=== PATIENT | female | born 1970 | race Caucasian/White ===

== ENCOUNTER → 2016-08-29 | Outpatient (CLI) | payer OTHER ==
--- NOTE | 2016-09-02 13:04 | MM ---
Reason for exam: screening (asymptomatic). Last mammogram was performed 1 year and 2 months ago. History: Taking hormonal contraceptives for 20 years beginning at age 17. Physical Findings: A clinical breast exam by your physician is recommended on an annual basis and results should be correlated with mammographic findings. MG Screening Mammo w CAD Bilateral CC and MLO view(s) were taken. Prior study comparison: June 28, 2015, bilateral MG screening mammo w CAD. April 21, 2013, bilateral digital screening mammo w/CAD. There are scattered fibroglandular densities. No significant changes when compared with prior studies. ASSESSMENT: Benign, BI-RAD 2 RECOMMENDATION: Routine screening mammogram of both breasts in 1 year.
== END | disposition home or self-care (01) ==
LOC: RADMAMWWP 14:35
PROVIDERS: ATTEND Obstetrics & Gynecology
DX: Z12.31 Encounter for screening mammogram for malignant neoplasm of breast (principal)

== ENCOUNTER → 2017-07-18 | Outpatient (CLI) | payer OTHER ==
[2017-07-18 07:44] LABS: Anisocytosis Slight; HGB 9.2 gm/dL (11.4-16.0); Hypochromasia Marked; MCH 21.5 pg (25.0-35.0); MCHC 27.9 g/dL (31.0-37.0); Mean Platelet Volume 6.6; Microcytosis Slight; Platelet Count 354 k/uL (150-450); RBC 4.28 m/uL (3.80-5.40); RDW 16.7 % (11.5-15.5); WBC 5.9 k/uL (3.8-10.6)
[2017-07-18 07:56] LABS: ALT 19 U/L (9-52); AST 24 U/L (14-36); Albumin 3.9 g/dL (3.5-5.0); Alkaline Phosphatase 52 U/L (38-126); Anion Gap 8 mmol/L; Blood Urea Nitrogen 10 mg/dL (7-17); Carbon Dioxide 25 mmol/L (22-30); Chloride 107 mmol/L (98-107); Cholesterol 195 mg/dL (<200); Glucose 84 mg/dL (74-99); HDL Cholesterol 91 mg/dL (40-60); LDL Cholesterol,Calculated 83 mg/dL (0-99); Sodium 140 mmol/L (137-145); Total Bilirubin 0.5 mg/dL (0.2-1.3); Total Protein 6.9 g/dL (6.3-8.2); Triglycerides 105 mg/dL (<150)
[2017-07-18 08:00] LABS: Potassium 4.7 mmol/L (3.5-5.1)
[2017-07-18 08:12] LABS: T4, Free (Free Thyroxine) 1.46 ng/dL (0.78-2.19)
[2017-07-18 08:56] LABS: Eosinophils # (M) 0.35 k/uL (0-0.7); Lymphocytes # (M) 2.18 k/uL (1.0-4.8); Neutrophils # (M) 3.07 k/uL (1.3-7.7); Neutrophils % (M) 52 %; Nucleated Red Blood Cells 0 /100 WBC (0-0); Total Cells Counted 100
== END | disposition home or self-care (01) ==
LOC: LABWHC1 07:07
PROVIDERS: ATTEND Family Medicine
DX: Z00.00 Encounter for general adult medical examination without abnormal findings (principal); N93.8 Other specified abnormal uterine and vaginal bleeding; E03.9 Hypothyroidism, unspecified; D64.9 Anemia, unspecified
CPT/HCPCS: 36415; 80053; 80061; 84439; 84443; 85027

== ENCOUNTER → 2017-09-30 | Outpatient (CLI) | payer OTHER ==
--- NOTE | 2017-09-30 15:15 | US ---
EXAMINATION TYPE: US thyroid st tissue head/neck DATE OF EXAM: 09/30/2017 COMPARISON: Prior thyroid ultrasound February 21, 2012 CLINICAL HISTORY: E04.9 NONTOXIC GOITER. GLAND SIZE: Right Lobe: 6.3 x 2.1 x 1.9 cm Overall Parenchyma: heterogenous Left Lobe: 5.8 x 2.2 x 1.6 cm Overall Parenchyma: heterogeneous Isthmus Thickness: 0.3 cm NODULES RIGHT: # of nodules measured on right: 0 LEFT: # of nodules measured on left: 0 ISTHMUS: # of nodules measured in the isthmus: 0 Bilateral neck scanned, no evidence of lymphadenopathy. Persistent heterogeneous enlarged thyroid gland even more prominent than measurements given on prior ultrasound. No new discrete nodule is seen. IMPRESSION: Heterogeneous enlarged thyroid more prominent than prior study based on measurements, no suspicious new greater than 1 cm solid or cystic nodule is noted.
--- NOTE | 2017-10-06 08:04 | MM ---
Reason for exam: screening (asymptomatic). Last mammogram was performed 1 year and 1 month ago. History: Taking hormonal contraceptives for 20 years beginning at age 17. Physical Findings: A clinical breast exam by your physician is recommended on an annual basis and results should be correlated with mammographic findings. MG Screening Mammo w CAD Bilateral CC and MLO view(s) were taken. Prior study comparison: August 29, 2016, bilateral MG screening mammo w CAD. June 28, 2015, bilateral MG screening mammo w CAD. The breast tissue is heterogeneously dense. This may lower the sensitivity of mammography. There is no discrete abnormality. ASSESSMENT: Negative, BI-RAD 1 RECOMMENDATION: Routine screening mammogram of both breasts in 1 year.
== END | disposition home or self-care (01) ==
LOC: RADMAMWWP 14:44
PROVIDERS: ATTEND Obstetrics & Gynecology
DX: Z12.31 Encounter for screening mammogram for malignant neoplasm of breast (principal); E04.9 Nontoxic goiter, unspecified
CPT/HCPCS: 76536; 77067

== ENCOUNTER → 2018-07-25 | Outpatient (CLI) | payer OTHER ==
[2018-07-25 10:15] LABS: HGB 13.1 gm/dL (11.4-16.0); MCHC 31.3 g/dL (31.0-37.0); MCV 92.8 fL (80.0-100.0); Mean Platelet Volume 6.6; Platelet Count 283 k/uL (150-450); RBC 4.52 m/uL (3.80-5.40); RDW 15.3 % (11.5-15.5); WBC 5.5 k/uL (3.8-10.6)
[2018-07-25 10:48] LABS: Eosinophils # (M) 0.22 k/uL (0-0.7); Lymphocytes # (M) 1.38 k/uL (1.0-4.8); Monocytes # (M) 0.33 k/uL (0-1.0); Neutrophils # (M) 3.58 k/uL (1.3-7.7); Neutrophils % (M) 65 %; Nucleated Red Blood Cells 0 /100 WBC (0-0); Total Cells Counted 100
[2018-07-25 17:11] LABS: Iron Saturation 16.88 (12.00-45.00)
[2018-07-25 17:14] LABS: Albumin 4.1 g/dL (3.80-4.90); Albumin/Globulin Ratio 1.78 (1.60-3.17); Anion Gap 6.5 mmol/L (4.00-12.00); Calcium 8.9 mg/dL (8.7-10.3); Carbon Dioxide 26.5 mmol/L (21.6-31.8); Globulin 2.3 g/dL (1.6-3.3); LDL Cholesterol,Calculated 102.2 mg/dL (0.0-131.0); Potassium 4.7 mmol/L (3.5-5.5); Total Bilirubin 0.6 mg/dL (0.2-1.2); Total Protein 6.4 g/dL (6.2-8.2); VLDL Calculation 20.8 mg/dL (5.00-40.00)
[2018-07-25 17:22] LABS: T4, Free (Free Thyroxine) 1.2 ng/dL (0.80-1.80)
== END ==
LOC: LABWHC1 09:48
PROVIDERS: ATTEND Family Medicine
DX: E03.9 Hypothyroidism, unspecified (principal); D64.9 Anemia, unspecified; R03.0 Elevated blood-pressure reading, without diagnosis of hypertension
CPT/HCPCS: 36415; 80053; 80061; 82728; 83540; 83550; 84439; 84443; 85025

== ENCOUNTER → 2019-01-06 | Outpatient (CLI) | payer OTHER ==
--- NOTE | 2019-01-07 13:19 | MM ---
Reason for exam: screening (asymptomatic). Last mammogram was performed 1 year and 3 months ago. History: Taking hormonal contraceptives for 20 years beginning at age 17. Physical Findings: A clinical breast exam by your physician is recommended on an annual basis and results should be correlated with mammographic findings. MG Screening Mammo w CAD Bilateral CC and MLO view(s) were taken. Prior study comparison: September 30, 2017, bilateral MG screening mammo w CAD. August 29, 2016, bilateral MG screening mammo w CAD. The breast tissue is heterogeneously dense. This may lower the sensitivity of mammography. There are benign appearing round calcifications in the right breast. There is no discrete abnormality. ASSESSMENT: Negative, BI-RAD 1 RECOMMENDATION: Routine screening mammogram of both breasts in 1 year.
== END | disposition home or self-care (01) ==
LOC: RADMAMWWP 11:35
PROVIDERS: ATTEND Obstetrics & Gynecology
DX: Z12.31 Encounter for screening mammogram for malignant neoplasm of breast (principal)
CPT/HCPCS: 77067

== ENCOUNTER → 2020-03-02 | Outpatient (CLI) | payer BC ==
--- NOTE | 2020-03-02 13:31 | ECHOF ---
Referral Reason:Z82.49 Family history of ischemic heart disease MEASUREMENTS -------- HEIGHT: 165.1 cm WEIGHT: 65.8 kg BP: IVSd: 1.1 cm (0.6 - 1.1) LVIDd: 3.4 cm (3.9 - 5.3) LVPWd: 1.1 cm (0.6 - 1.1) IVSs: 1.5 cm LVIDs: 1.7 cm LVPWs: 1.7 cm LAESV Index (A-L): 23.08 ml/m Ao Diam: 2.5 cm (2.0 - 3.7) AV Cusp: 1.6 cm (1.5 - 2.6) LA Diam: 1.5 cm (2.7 - 3.8) MV EXCURSION: 16.399 mm (> 18.000) MV EF SLOPE: 134 mm/s (70 - 150) EPSS: 0.4 cm MV E Donovan: 0.90 m/s MV DecT: 238 ms MV A Donovan: 0.77 m/s MV E/A Ratio: 1.17 RAP: 5.00 mmHg RVSP: 19.39 mmHg FINDINGS -------- This was a technically good study. The left ventricular size is normal. Left ventricular wall thickness is normal. Overall left vent ricular systolic function is normal with, an EF between 55 - 60 %. The diastolic filling pattern is normal for the age of the patient 11.63. The right ventricle is normal in size. The left atrial size is normal. Normal LA size by volume 22+/-6 ml/m2. The right atrial size is normal. The aortic valve is trileaflet and appears structurally normal. The mitral valve is normal. The mitral valve leaflets are mildly thickened. Mild mitral regurgita tion is present. Mild tricuspid regurgitation present. Right ventricular systolic pressure is normal at < 35 mmHg. There is no evidence of pulmonary hypertension. There is no pulmonic regurgitation present. The aortic root size is normal. Normal inferior vena cava with normal inspiratory collapse consistent with estimated right atrial pre ssure of 5 mmHg. There is no pericardial effusion. CONCLUSIONS -------- 1. The left ventricular size is normal. 2. Left ventricular wall thickness is normal. 3. Overall left ventricular systolic function is normal with, an EF between 55 - 60 %. 4. The diastolic filling pattern is normal for the age of the patient 11.63 5. The aortic valve is trileaflet and appears structurally normal. 6. The mitral valve leaflets are mildly thickened. 7. Mild mitral regurgitation is present. 8. Right ventricular systolic pressure is normal at < 35 mmHg. 9. There is no pericardial effusion. TIP LENGTH CHECKER: Nohemi Hutchison RDCS
--- NOTE | 2020-03-02 14:59 | EST ---
EXERCISE STRESS AGE: 49 SEX: F HT: 5'5" WT: 145 PROTOCOL: Jack Stress Test STAGE: 3 DURATION OF EXERCISE: 9:00 HEART RATE REST: 103 BLOOD PRESSURE REST: 143/78 MAXIMUM HEART RATE ACHIEVED: 158 MAXIMUM BLOOD PRESSURE: 168/96 85% MPHR: 145 100% MPHR: 171 METS: 10.5 INDICATIONS: Family history of ischemic heart disease. CLINICAL INFORMATION: Baseline EKG shows sinus rhythm, normal axis, normal intervals. Patient exercised on Jack protocol for a total of 9 minutes achieving 10 METS, 92% of predicted maximal heart rate without chest pain or diagnostic ST-segment depression. CONCLUSION: 1. Good exercise tolerance. 2. Negative stress test by EKG criteria. MMODL / IJN: [id number] /
== END | disposition home or self-care (01) ==
LOC: RADNMMAIN 10:36
PROVIDERS: ATTEND Family Medicine
DX: Z13.6 Encounter for screening for cardiovascular disorders (principal); I34.0 Nonrheumatic mitral (valve) insufficiency; Z82.49 Family history of ischemic heart disease and other diseases of the circulatory system
CPT/HCPCS: 93017; 93306

== ENCOUNTER → 2020-03-16 | Outpatient (CLI) | payer BC ==
--- NOTE | 2020-03-20 09:20 | MM ---
Reason for exam: screening (asymptomatic). Last mammogram was performed 1 year and 2 months ago. History: Taking hormonal contraceptives for 20 years beginning at age 17. Physical Findings: A clinical breast exam by your physician is recommended on an annual basis and results should be correlated with mammographic findings. MG 3D Screening Mammo W/Cad Bilateral CC and MLO view(s) were taken. Prior study comparison: January 06, 2019, bilateral MG screening mammo w CAD. September 30, 2017, bilateral MG screening mammo w CAD. The breast tissue is heterogeneously dense. This may lower the sensitivity of mammography. Finding: There are calcifications in the anterior position of the right breast. No significant changes in finding since January 06, 2019 and September 30, 2017. ASSESSMENT: Benign, BI-RAD 2 RECOMMENDATION: Routine screening mammogram of both breasts in 1 year.
== END | disposition home or self-care (01) ==
LOC: RADMAMWWP 14:28
PROVIDERS: ATTEND Obstetrics & Gynecology
DX: Z12.31 Encounter for screening mammogram for malignant neoplasm of breast (principal)
CPT/HCPCS: 77063; 77067

== ENCOUNTER 2021-01-15 10:38 | Observation (INO) | payer BC ==
[2021-01-15] MEDS ORDERED: ONDANSETRON 4 MG/2 ML VIAL IVP STA (11:30)
--- NOTE | 2021-01-15 11:31 | ED ---
General Adult HPI - General Chief complaint: Altered Mental Status Stated complaint: Memory issues Time Seen by Provider: 01/15/21 10:49 Source: patient, family Mode of arrival: wheelchair Limitations: no limitations - History of Present Illness Initial comments: Dictation was produced using [employer] dictation software. please excuse any grammatical, word or spelling errors. Chief Complaint: 50-year-old female presents with acute amnesia History of Present Illness: Is a 50-year-old female she has no significant past medical history. Patient was found to be showing signs of altered mental status today. Approximately 30 minutes prior to arrival patient was noted to have acute amnesia. describes that he asked her if she wanted to go for a bike ride. She was then confused and found to be amnestic to recent events. Wh en being driven to the hospital she was asking repetitively washes being driven to the hospital. She is unable to remember recent events. She does not A for dinner last night. Patient has any medical process at the moment. When asked about important dates she states that she does not remember. She does know that she is at the hospital. Denies any headache. No neck stiffness. No numbness and waning weakness or paresthesias to the extremities. The ROS documented in this emergency department record has been reviewed and confirmed by me. Those systems with pertinent positive or negative responses have been documented in the HPI. All other systems are other negative and/or noncontributory. PHYSICAL EXAM: General Impression: Alert and oriented x3/4, not in acute distress HEENT: Normocephalic atraumatic, extra-ocular movements intact, pupils equal and reactive to light bilaterally, mucous membranes moist, neck moves about freely Cardiovascular: Heart regular rate and rhythm Chest: Able to complete full sentences, no retractions, no tachypnea Abdomen: abdomen soft, non-tender, non-distended, no organomegaly Musculoskeletal: Pulses present and equal in all extremities, no peripheral edema Motor: no focal deficits noted Neurological: CN II-XII grossly intact, no focal motor or sensory deficits noted, NIH of 0 Skin: Intact with no visualized rashes Psych: Normal affect and mood ED course: 50-year-old male presents emergency department for altered mental status. She is described by to be experiencing signs of acute amnesia to recent events. Vital signs upon arrival are within acceptable limits. Patient's well-appearing at bedside. Laboratory evaluation obtained. Abnormalities noted. Urinalysis does show a lot of blood unclear significance. Computed tomography scan of brain is unremarkable. Patient reevaluated at bedside at 1:20 PM she does appear to be in stable medical condition over she still amnestic. This point given patient's persistent neurologic symptoms we will have her admitted with neurology consultation. Case discussed with Dr. Stokes who is willing to accept patients care. She requested patient be ordered for aspirin. Patient given 1 dose here in the ER. Patient and family are agreeable with plan. EKG interpretation: Ventricular rate 70, normal sinus rhythm,. 122, QRS 86, QTC 462. No LA prolongation, no QTC prolongation, no ST or T-wave changes noted. Overall, this EKG is unremarkable - Related Data Home Medications Medication Instructions Recorded Confirmed Ibuprofen [Motrin] 600 mg PO Q6HR PRN 01/15/21 01/15/21 Levothyroxine Sodium [Synthroid] 125 mcg PO DAILY 01/15/21 01/15/21 Norgestimate-Ethinyl Estradiol 1 tab PO DAILY 01/15/21 01/15/21 [Sprintec 28 Day Tablet] Tranexamic Acid [Lysteda] See Taper PO DIRECTED 01/15/21 01/15/21 Allergies Allergy/AdvReac Type Severity Reaction Status Date / Time No Known Allergies Allergy Verified 01/15/21 12:39 Review of Systems ROS Statement: Those systems with pertinent positive or pertinent negative responses have been documented in the HPI. ROS Other: All systems not noted in ROS Statement are negative. Past Medical History Past Medical History: Thyroid Disorder History of Any Multi-Drug Resistant Organisms: None Reported Past Surgical History: No Surgical Hx Reported Past Psychological History: No Psychological Hx Reported Smoking Status: Never smoker Past Alcohol Use History: None Reported Past Drug Use History: None Reported General Exam Limitations: no limitations Course Vital Signs 01/15/21 01/15/21 01/15/21 10:44 11:30 12:00 Temperature 98 F Pulse Rate 83 75 80 Respiratory 18 18 17 Rate Blood Pressure 157/105 148/88 157/98 O2 Sat by Pulse 99 Oximetry Medical Decision Making - Lab Data Result diagrams: 01/15/21 11:31 01/15/21 11:31 Lab Results 01/15/21 01/15/21 01/15/21 Range/Units 11:31 11:31 11:31 WBC 6.4 (3.8-10.6) k/uL RBC 4.70 (3.80-5.40) m/uL Hgb 14.9 (11.4-16.0) gm/dL Hct 45.1 (34.0-46.0) % MCV 96.1 (80.0-100.0) fL MCH 31.7 (25.0-35.0) pg MCHC 33.0 (31.0-37.0) g/dL RDW 13.3 (11.5-15.5) % Plt Count 323 (150-450) k/uL MPV 6.9 Neutrophils % 74 % Lymphocytes % 17 % Monocytes % 4 % Eosinophils % 1 % Basophils % 0 % Neutrophils # 4.7 (1.3-7.7) k/uL Lymphocytes # 1.1 (1.0-4.8) k/uL Monocytes # 0.3 (0-1.0) k/uL Eosinophils # 0.1 (0-0.7) k/uL Basophils # 0.0 (0-0.2) k/uL PT 9.7 (9.0-12.0) sec INR 0.9 (<1.2) APTT 22.1 (22.0-30.0) sec Sodium 137 (137-145) mmol/L Potassium 4.2 (3.5-5.1) mmol/L Chloride 107 (98-107) mmol/L Carbon Dioxide 22 (22-30) mmol/L Anion Gap 8 mmol/L BUN 7 (7-17) mg/dL Creatinine 0.71 (0.52-1.04) mg/dL Est GFR (CKD-EPI)AfAm >90 (>60 ml/min/1.73 sqM) Est GFR (CKD-EPI)NonAf >90 (>60 ml/min/1.73 sqM) Glucose 109 H (74-99) mg/dL POC Glucose (mg/dL) (75-99) mg/dL POC Glu Pharmaceutical Salesperson ID Calcium 9.0 (8.4-10.2) mg/dL Total Bilirubin 0.5 (0.2-1.3) mg/dL AST 34 (14-36) U/L ALT 16 (4-34) U/L Alkaline Phosphatase 62 (38-126) U/L Total Protein 7.1 (6.3-8.2) g/dL Albumin 4.3 (3.5-5.0) g/dL Urine Color Urine Appearance (Clear) Urine pH (5.0-8.0) Ur Specific Goessel (1.001-1.035) Urine Protein (Negative) Urine Glucose (UA) (Negative) Urine Ketones (Negative) Urine Blood (Negative) Urine Nitrite (Negative) Urine Bilirubin (Negative) Urine Urobilinogen (<2.0) mg/dL Ur Leukocyte Esterase (Negative) Urine RBC (0-5) /hpf Urine WBC (0-5) /hpf Ur Squamous Epith Cells (0-4) /hpf Urine Mucus (None) /hpf 01/15/21 01/15/21 Range/Units 11:36 11:41 WBC (3.8-10.6) k/uL RBC (3.80-5.40) m/uL Hgb (11.4-16.0) gm/dL Hct (34.0-46.0) % MCV (80.0-100.0) fL MCH (25.0-35.0) pg MCHC (31.0-37.0) g/dL RDW (11.5-15.5) % Plt Count (150-450) k/uL MPV Neutrophils % % Lymphocytes % % Monocytes % % Eosinophils % % Basophils % % Neutrophils # (1.3-7.7) k/uL Lymphocytes # (1.0-4.8) k/uL Monocytes # (0-1.0) k/uL Eosinophils # (0-0.7) k/uL Basophils # (0-0.2) k/uL PT (9.0-12.0) sec INR (<1.2) APTT (22.0-30.0) sec Sodium (137-145) mmol/L Potassium (3.5-5.1) mmol/L Chloride (98-107) mmol/L Carbon Dioxide (22-30) mmol/L Anion Gap mmol/L BUN (7-17) mg/dL Creatinine (0.52-1.04) mg/dL Est GFR (CKD-EPI)AfAm (>60 ml/min/1.73 sqM) Est GFR (CKD-EPI)NonAf (>60 ml/min/1.73 sqM) Glucose (74-99) mg/dL POC Glucose (mg/dL) 105 H (75-99) mg/dL POC Glu Pharmaceutical Salesperson ID Farhana Kerr Calcium (8.4-10.2) mg/dL Total Bilirubin (0.2-1.3) mg/dL AST (14-36) U/L ALT (4-34) U/L Alkaline Phosphatase (38-126) U/L Total Protein (6.3-8.2) g/dL Albumin (3.5-5.0) g/dL Urine Color Light Red Urine Appearance Clear (Clear) Urine pH 6.0 (5.0-8.0) Ur Specific Goessel 1.013 (1.001-1.035) Urine Protein 1+ H (Negative) Urine Glucose (UA) Negative (Negative) Urine Ketones Trace H (Negative) Urine Blood Large H (Negative) Urine Nitrite Negative (Negative) Urine Bilirubin Negative (Negative) Urine Urobilinogen <2.0 (<2.0) mg/dL Ur Leukocyte Esterase Small H (Negative) Urine RBC >182 H (0-5) /hpf Urine WBC 7 H (0-5) /hpf Ur Squamous Epith Cells 2 (0-4) /hpf Urine Mucus Occasional H (None) /hpf Disposition Clinical Impression: Altered mental status Disposition: ADMITTED IP TO THIS HOSP Condition: Fair Referrals: Hakeem Gamino DO [Primary Care Provider] - 1-2 days
[2021-01-15 11:37] LABS: Glucose,Whole Blood 105 mg/dL (75-99)
[2021-01-15 11:52] LABS: ALT 16 U/L (4-34); AST 34 U/L (14-36); African American GFR (CKD) >90 (>60 ml/min/1.73 sqM); Albumin 4.3 g/dL (3.5-5.0); Alkaline Phosphatase 62 U/L (38-126); Anion Gap 8 mmol/L; Blood Urea Nitrogen 7 mg/dL (7-17); Carbon Dioxide 22 mmol/L (22-30); Chloride 107 mmol/L (98-107); Glucose 109 mg/dL (74-99); Non-African American GFR(CKD) >90 (>60 ml/min/1.73 sqM); Potassium 4.2 mmol/L (3.5-5.1); Sodium 137 mmol/L (137-145); Total Bilirubin 0.5 mg/dL (0.2-1.3); Total Protein 7.1 g/dL (6.3-8.2)
[2021-01-15 12:05] LABS: Appearance,Urine Clear (Clear); Bilirubin,Urine Negative (Negative); Blood,Urine Large (Negative); Color,Urine Light Red; Glucose,Urine (UA) Negative (Negative); Ketones,Urine Trace (Negative); Leukocyte Esterase,Urine Small (Negative); Mucus,Urine Occasional /hpf; Nitrite,Urine Negative (Negative); Protein,Urine 1+ (Negative); RBC,Urine >182 /hpf (0-5); Specific Gravity,Urine 1.013 (1.001-1.035); Squamous Epithelial Cell,Urine 2 /hpf (0-4); Urobilinogen,Urine <2.0 mg/dL (<2.0); WBC,Urine 7 /hpf (0-5)
[2021-01-15 12:07] LABS: Basophils % (A) 0 %; Eosinophils # (A) 0.1 k/uL (0-0.7); Eosinophils % (A) 1 %; HCT 45.1 % (34.0-46.0); HGB 14.9 gm/dL (11.4-16.0); Lymphocytes # (A) 1.1 k/uL (1.0-4.8); Lymphocytes % (A) 17 %; MCH 31.7 pg (25.0-35.0); MCV 96.1 fL (80.0-100.0); Mean Platelet Volume 6.9; Monocytes # (A) 0.3 k/uL (0-1.0); Monocytes % (A) 4 %; Neutrophils # (A) 4.7 k/uL (1.3-7.7); Neutrophils % (A) 74 %; Platelet Count 323 k/uL (150-450); RDW 13.3 % (11.5-15.5); WBC 6.4 k/uL (3.8-10.6)
[2021-01-15 12:19] LABS: INR 0.9 (<1.2); Partial Thromboplastin Time 22.1 sec (22.0-30.0); Prothrombin Time 9.7 sec (9.0-12.0)
--- NOTE | 2021-01-15 12:37 | CT ---
EXAMINATION TYPE: CT brain wo con DATE OF EXAM: 01/15/2021 COMPARISON: None HISTORY: memory loss CT DLP: 1084.[address] of the brain was performed. The ventricles, basal cisterns and sulci overlying the cerebral convexities demonstrate mild enlargem ent. There is no evidence for intracranial hemorrhage or sulcal effacement. There is decreased attenuation about the periventricular white matter and deep white matter of both c erebral hemispheres, compatible with chronic small vessel ischemia. Differential diagnosis does inclu de demyelination. No mass effects are seen.No midline shift. Osseous calvarium is intact. If symptoms persist consider MRI. IMPRESSION: 1. Age related atrophic and chronic small vessel ischemic change without acute intracranial process s een at this time.
[2021-01-15] MEDS ORDERED: NALOXONE 0.4 MG/ML 1 ML VIAL IV PRN (13:20)
[2021-01-15] MEDS ORDERED: ASPIRIN 81 MG PO STA (13:22)
[2021-01-15] MEDS ORDERED: SODIUM CHLORIDE 0.9% 1,000 ML IV SCH (13:30)
--- NOTE | 2021-01-15 17:15 | P.CNNES ---
History of Present Illness Consult date: 01/15/21 Requesting physician: Ermias Rodas Reason for Consult: altered mental status History of Present Illness: Patient is a 50-year-old female came to the hospital today at 10:38 AM for transient memory loss. Patient and her were planning to go out for bicycle ride. Patient was perfectly fine at 9:30 in the morning, when patient's went outside to get ready for the bike ride. Apparently she did not com e outside. When patient's went in at around 9:50 AM, he saw that she had some receipts and papers spread out, and she was confused about what day it was it. She could not remember what month or date is it and she would keep on asking the same question over and over again. He knew that she was not fine, therefore brought her to the hospital. Patient denies any visual problems, numbness tingling or slurred speech or facial droop. She notices mild headache right temporal region which he rates 1/10. Patient's vitals on arrival blood pressure 157/105, which improved to 148/88. Pulse rate 83 temperature 98.0. Computed tomography scan of the head showed age-related atrophic and chronic small vessel ischemic change without acute intracranial process seen at this time. EKG shows normal sinus rhythm. Blood test shows normal CBC PT/PTT, Chem-7 20. UA shows trace ketones, large amount of blood. Small amount of leukocyte Estrace. Patient's last hemoglobin A1c 4.9 on 05/06/2019. Patient's lipid panel from 01/07/2020 shows cholesterol 215, LDL 110, HDL 81 and triglycerides were and 16. TFTs normal. Her previous rheumatoid factor, MYNOR and, dsDNA negative. Patient at present still having difficulty recalling the month or the date. She does not remember anything whatsoever happened this morning, one time she woke up. She does not remember anything what happened on Friday. She does remember details about going to the wedding on Friday night, which is 2 nights ago. Patient denies any head trauma, any history of migraines or any history of seizures ever in the past. No family history of seizures or migraines. Patient's home medications include Sprintec 28, which is a control pill, ibuprofen 600 mg, tranexamic acid, levothyroxine 125 g. Patient denies history of hypertension or diabetes. No tobacco or alcohol use. Patient has gone to the wedding on Friday, during which she drank a couple drinks, but was not drunk. Review of Systems As above in detail. All other review of systems are unremarkable. Denies any chest pain, abdominal pain, nausea vomiting diarrhea. Denies any visual issues. Denies any fever, weight loss. No chills. Past Medical History Past Medical History: Thyroid Disorder History of Any Multi-Drug Resistant Organisms: None Reported Past Surgical History: No Surgical Hx Reported Past Psychological History: No Psychological Hx Reported Smoking Status: Never smoker Past Alcohol Use History: None Reported Past Drug Use History: None Reported - Past Family History Father Family Medical History: Myocardial Infarction ([place]) Mother Family Medical History: Cancer, Coronary Artery Disease (CAD) Medications and Allergies Home Medications Medication Instructions Recorded Confirmed Type Ibuprofen [Motrin] 600 mg PO Q6HR PRN 01/15/21 01/15/21 History Levothyroxine Sodium [Synthroid] 125 mcg PO DAILY 01/15/21 01/15/21 History Norgestimate-Ethinyl Estradiol 1 tab PO DAILY 01/15/21 01/15/21 History [Sprintec 28 Day Tablet] Tranexamic Acid [Lysteda] See Taper PO DIRECTED 01/15/21 01/15/21 History Allergies Allergy/AdvReac Type Severity Reaction Status Date / Time No Known Allergies Allergy Verified 01/15/21 12:39 Physical Examination - Vital Signs Vital Signs: Vital Signs Temp Pulse Resp BP Pulse Ox 01/15/21 14:21 98.6 F 96 18 167/79 98 01/15/21 12:00 80 17 157/98 01/15/21 11:30 75 18 148/88 01/15/21 10:44 98 F 83 18 157/105 99 Intake and Output 01/14/21 01/15/21 01/15/21 22:59 06:59 14:59 Other: Weight 58.967 kg Patient is a middle aged female, very pleasant, in no acute distress. Patient is alert awake. Patient knows that she is in [place] in [place], knows name of her son and her ex- as well as her current , all of them were present here. She has difficulty remembering the month although she was able to look at the notice board and was able to tell it was December. She knows the year is 2020, and name of the current president. Speech and language functions are normal. Attention span, concentration appears slightly affected, but she was able to provide all history in detail. Her fund of knowledge is otherwise adequate. On cranial examination, pupils are round and reacting to light, visual ferreira are full on confrontation, extraocular muscles are intact with no nystagmus. Face is symmetric, tongue protrudes to the midline. Palatal elevation and sensation normal, hearing and shoulder shrug normal, facial sensation normal. Shoulder shrug normal. On muscle strength testing, there is no pronator drift and the strength is normal in arms and legs distally and proximally. Deep tendon reflexes are 2 in the upper limbs, 2+ to 3 at the knees, 1+ to 2 at ankles and plantars downgoing. Sensory to touch is equal with no neglect. Cerebellar function showed no ataxia for [id number] testing. No dysdiadochokinesia. Tone and bulk of muscles normal. Gait normal. On general examination, there is no carotid bruit or murmur, S1-S2 audible. Abdomen is soft nontender. Chest is clear. Peripheral pulses are present. No edema. Results - Laboratory Findings CBC and BMP: 01/15/21 11:31 01/15/21 11:31 Abnormal Lab Findings: Abnormal Labs 01/15/21 01/15/21 01/15/21 11:31 11:36 11:41 Glucose 109 H POC Glucose (mg/dL) 105 H Urine Protein 1+ H Urine Ketones Trace H Urine Blood Large H Ur Leukocyte Esterase Small H Urine RBC >182 H Urine WBC 7 H Urine Mucus Occasional H Assessment and Plan Assessment: * Probable transient global amnesia. Patient has retrograde and anterograde amnesia. No history of trauma, migraines or epilepsy. Patient has no other focal symptoms whatsoever. * High blood pressure readings. Patient has never been diagnosed with hypertension although has had some times elevated blood pressure readings in the past. Suspect patient has hypertension. * Hypercoagulable state due to use of control pills. Plan: * Patient needs for workup for TIA/TGA. * Patient will undergo MRI of the brain, carotid Doppler, 2-D echo with bubble study. * EEG to rule out any epileptiform activity. * Fasting lipid panel. * Start aspirin 325 mg daily. * Hold off on control pills at this time. * Dr. Adarsh Mario Will resume neurology service from the morning.
--- NOTE | 2021-01-15 20:14 | P.HPIM ---
History of Present Illness H&P Date: 01/15/21 Chief Complaint: Memory loss This is a 50-year-old pleasant female, with known history of hypothyroidism, comes into the hospital with acute memory loss. She was fine when she woke up this morning and they were making plans for a biking trip that day, a approximately 9:30 a.m., and there were planning to go out for bike ride. The did not come outside, and the has to come back in to look for her, where she he found her to be very confused, cannot recollect anything, Asking questions over and over again, patient denies any motor deficits, or slurred speech, or facial droop, there is right headache temporal region, mild, without any loss of consciousness, no diplopia. Patient does not have any previous history of CVA in the past, no CHF, no history of hypertension, no tobacco use, no diabetes mellitus patient denies any new acute exposure, or extensive sun exposure including gardening. No recent drug changes, or prescription medicines. They don't have a wedding that they have gotten to Friday. For which she had a couple of drinks at that time. In the emergency room, which she was noted to be hypertensive with systolic of 157 with diastolic 105, computed tomography scan done, showed age related atrophy, and chronic small vessel ischemic change, without any acute intracranial process. EKG shows normal sinus rhythm, UA shows trace ketones, large amount of blood, small leukocyte esterase, however wbc's only 7, and RBCs over 182. There is 1+ proteinuria, glucose 109, creatinine of 0.71, sodium 137. Patient is on Sprintec, which is an OCP, and ibuprofen, when seen in ER, NIH score of 1, with the memory loss. No motor deficit, no obesity changes, patient's admitted with consult to neurology, start aspirin, and MRI of the brain with and without contrast Review of Systems Constitutional: Reports as per HPI, Denies anorexia, Denies chills, Denies chronic headaches, Denies chronic pain, Denies daytime sleepiness, Denies fatigue, Denies fever, Denies lethargy, Denies malaise, Denies night sweats, Denies poor appetite, Denies sweats, Denies weakness, Denies weight gain, Denies weight loss Ears, nose, mouth and throat: Reports as per HPI, Denies ant. neck pain, Denies bleeding gums, Denies dental pain, Denies dysphagia, Denies epistaxis, Denies headache, Denies hoarseness, Denies mouth pain, Denies nasal congestion, Denies nasal discharge, Denies neck fullness/pressure, Denies neck lump, Denies nose pain, Denies odynophagia, Denies post-nasal drip, Denies sinus pain, Denies sinus pressure, Denies swelling in mouth, Denies swelling in throat, Denies sore throat, Denies vertigo, Denies voice changes Breasts: Reports as per HPI Cardiovascular: Reports as per HPI, Denies chest pain, Denies claudication, De nies decreased exercise tolerance, Denies dyspnea on exertion, Denies edema, Denies high blood pressure, Denies irregular heart beat, Denies leg edema, Denies lightheadedness, Denies orthopnea, Denies palpitations, Denies paroxysmal nocturnal dyspnea, Denies phlebitis, Denies rapid heart beat, Denies shortness of breath, Denies syncope Respiratory: Reports as per HPI, Denies congestion, Denies cough, Denies cough with sputum, Denies dyspnea, Denies excessive sputum, Denies hemoptysis, Denies home oxygen, Denies pain, Denies pain on inspiration, Denies pleurisy, Denies respiratory infections, Denies sleep apnea, Denies snoring, Denies wheezing Gastrointestinal: Reports as per HPI Genitourinary: Reports as per HPI Menstruation: Reports as per HPI Musculoskeletal: Reports as per HPI, Denies arm numbness/tingling, Denies atrophy, Denies fractures, Denies frequent falls, Denies gait dysfunction, Denies hot joints, Denies leg numbness/tingling, Denies limitation of motion, Denies loss of height, Denies low back pain, Denies morning stiffness, Denies muscle cramps, Denies muscle weakness, Denies myalgias, Denies neck pain, Denies neck stiffness, Denies prior amputations, Denies redness of joints, Denies shooting arm pain, Denies shooting leg pain Integumentary: Reports as per HPI, Denies acne, Denies boils, Denies brittle nails, Denies change in hair/nails, Denies color changes, Denies darkening of skin, Denies depigmentation, Denies dryness, Denies foot/leg ulcers, Denies growths, Denies hirsutism, Denies lesions, Denies onychomycosis, Denies pruritus, Denies rash, Denies sores, Denies striae, Denies unusual bruising, Denies wounds Neurological: Reports as per HPI, Reports memory loss Psychiatric: Reports as per HPI, Denies anhedonia, Denies anxiety, Denies anxiety attacks, Denies change in appetite, Denies change in libido, Denies change in sleep habits, Denies confusion, Denies depression, Denies difficulty concentrating, Denies disorientation, Denies hallucinations, Denies hopelessness, Denies hypersomnia, Denies insomnia, Denies irritability, Denies memory loss, Denies mood swings, Denies paranoia, Denies sadness/tearfulness, Denies sleep disturbances, Denies suicidal ideation Endocrine: Reports as per HPI, Denies cold intolerance, Denies deepening of the voice, Denies excessive sweating, Denies excessive thirst, Denies fatigue, Denies flushing, Denies heat intolerance, Denies high blood sugars, Denies increase in ring/shoe/hat size, Denies low blood sugars, Denies nocturia, Denies palpitations, Denies polydipsia, Denies polyphagia, Denies polyuria, Denies proptosis, Denies recent glucocorticoid use, Denies thyroid mass, Denies weight change Hematologic/Lymphatic: Reports as per HPI Allergic/Immunologic: Reports as per HPI, Denies allergic rhinitis, Denies anaphylaxis, Denies angioedema, Denies gluten intolerance, Denies persistent infections, Denies seasonal allergies, Denies urticaria, Denies wheezing Past Medical History Past Medical History: Thyroid Disorder History of Any Multi-Drug Resistant Organisms: None Reported Past Surgical History: No Surgical Hx Reported Past Psychological History: No Psychological Hx Reported Smoking Status: Never smoker Past Alcohol Use History: None Reported Past Drug Use History: None Reported - Past Family History Father Family Medical History: Myocardial Infarction ([place]) Mother Family Medical History: Cancer, Coronary Artery Disease (CAD) Medications and Allergies Home Medications Medication Instructions Recorded Confirmed Type Ibuprofen [Motrin] 600 mg PO Q6HR PRN 01/15/21 01/15/21 History Levothyroxine Sodium [Synthroid] 125 mcg PO DAILY 01/15/21 01/15/21 History Tranexamic Acid [Lysteda] See Taper PO DIRECTED 01/15/21 01/15/21 History Atorvastatin [Lipitor] 20 mg PO HS #30 tablet 01/16/21 Rx Norethindrone [Ortho Micronor] 0.35 mg PO DAILY #30 tablet 01/16/21 Rx Allergies Allergy/AdvReac Type Severity Reaction Status Date / Time No Known Allergies Allergy Verified 01/15/21 12:39 Physical Exam Vitals: Vital Signs Temp Pulse Resp BP Pulse Ox 01/15/21 12:00 80 17 157/98 01/15/21 11:30 75 18 148/88 01/15/21 10:44 98 F 83 18 157/105 99 Intake and Output 01/14/21 01/15/21 01/15/21 22:59 06:59 14:59 Other: Weight 58.967 kg - Constitutional General appearance: cooperative, no acute distress - EENT Eyes: no abnormal pupil, anicteric sclerae, EOMI, PERRLA, dentition normal, no ptosis ENT: NA/AT, normal oropharynx - Neck Neck: normal ROM - Respiratory Respiratory: bilateral: CTA, negative: diminished, dullness, rales - Cardiovascular Rhythm: regular Heart sounds: normal: S1 - Gastrointestinal General gastrointestinal: normal bowel sounds, soft - Integumentary Integumentary: normal - Neurologic Speech, is normal, has short-term memory losses, concentration is diminished, aware on the year, has a hard time remembering the month. Patient is aware with current events, however recollection for 5 Checks, can only provide 1, need cues to recall the ER therefore ask questions. Concentration is good, with recall of 4 serial numbers backwards Neurologic: CNII-XII intact - Musculoskeletal Musculoskeletal: gait normal, strength equal bilaterally - Psychiatric Psychiatric: A&O x's 3 Results CBC & Chem 7: 01/15/21 11:31 01/15/21 11:31 Labs: Abnormal Lab Results - Last 24 Hours (Table) 01/15/21 01/15/21 01/15/21 Range/Units 11:31 11:36 11:41 Glucose 109 H (74-99) mg/dL POC Glucose (mg/dL) 105 H (75-99) mg/dL Urine Protein 1+ H (Negative) Urine Ketones Trace H (Negative) Urine Blood Large H (Negative) Ur Leukocyte Esterase Small H (Negative) Urine RBC >182 H (0-5) /hpf Urine WBC 7 H (0-5) /hpf Urine Mucus Occasional H (None) /hpf Laboratory Results WBC 6.4 k/uL (3.8-10.6) 01/15/21 11:31 RBC 4.70 m/uL (3.80-5.40) 01/15/21 11:31 Hgb 14.9 gm/dL (11.4-16.0) 01/15/21 11:31 Hct 45.1 % (34.0-46.0) 01/15/21 11:31 MCV 96.1 fL (80.0-100.0) 01/15/21 11:31 MCH 31.7 pg (25.0-35.0) 01/15/21 11:31 MCHC 33.0 g/dL (31.0-37.0) 01/15/21 11:31 RDW 13.3 % (11.5-15.5) 01/15/21 11:31 Plt Count 323 k/uL (150-450) 01/15/21 11:31 MPV 6.9 01/15/21 11:31 Neutrophils % 74 % 01/15/21 11:31 Lymphocytes % 17 % 01/15/21 11:31 Monocytes % 4 % 01/15/21 11:31 Eosinophils % 1 % 01/15/21 11:31 Basophils % 0 % 01/15/21 11:31 Neutrophils # 4.7 k/uL (1.3-7.7) 01/15/21 11:31 Lymphocytes # 1.1 k/uL (1.0-4.8) 01/15/21 11:31 Monocytes # 0.3 k/uL (0-1.0) 01/15/21 11:31 Eosinophils # 0.1 k/uL (0-0.7) 01/15/21 11:31 Basophils # 0.0 k/uL (0-0.2) 01/15/21 11:31 PT 9.7 sec (9.0-12.0) 01/15/21 11:31 INR 0.9 (<1.2) 01/15/21 11:31 APTT 22.1 sec (22.0-30.0) 01/15/21 11:31 Sodium 137 mmol/L (137-145) 01/15/21 11:31 Potassium 4.2 mmol/L (3.5-5.1) 01/15/21 11:31 Chloride 107 mmol/L (98-107) 01/15/21 11:31 Carbon Dioxide 22 mmol/L (22-30) 01/15/21 11:31 Anion Gap 8 mmol/L 01/15/21 11:31 BUN 7 mg/dL (7-17) 01/15/21 11:31 Creatinine 0.71 mg/dL (0.52-1.04) 01/15/21 11:31 Est GFR (CKD-EPI)AfAm >90 (>60 ml/min/1.73 sqM) 01/15/21 11:31 Est GFR (CKD-EPI)NonAf >90 (>60 ml/min/1.73 sqM) 01/15/21 11:31 Glucose 109 mg/dL (74-99) H 01/15/21 11:31 POC Glucose (mg/dL) 105 mg/dL (75-99) H 01/15/21 11:36 POC Glu Director [employer] Programming Farhana Craig 01/15/21 11:36 Calcium 9.0 mg/dL (8.4-10.2) 01/15/21 11:31 Total Bilirubin 0.5 mg/dL (0.2-1.3) 01/15/21 11:31 AST 34 U/L (14-36) 01/15/21 11:31 ALT 16 U/L (4-34) 01/15/21 11:31 Alkaline Phosphatase 62 U/L (38-126) 01/15/21 11:31 Total Protein 7.1 g/dL (6.3-8.2) 01/15/21 11:31 Albumin 4.3 g/dL (3.5-5.0) 01/15/21 11:31 Urine Color Light Red 01/15/21 11:41 Urine Appearance Clear (Clear) 01/15/21 11:41 Urine pH 6.0 (5.0-8.0) 01/15/21 11:41 Ur Specific Morrow 1.013 (1.001-1.035) 01/15/21 11:41 Urine Protein 1+ (Negative) H 01/15/21 11:41 Urine Glucose (UA) Negative (Negative) 01/15/21 11:41 Urine Ketones Trace (Negative) H 01/15/21 11:41 Urine Blood Large (Negative) H 01/15/21 11:41 Urine Nitrite Negative (Negative) 01/15/21 11:41 Urine Bilirubin Negative (Negative) 01/15/21 11:41 Urine Urobilinogen <2.0 mg/dL (<2.0) 01/15/21 11:41 Ur Leukocyte Esterase Small (Negative) H 01/15/21 11:41 Urine RBC >182 /hpf (0-5) H 01/15/21 11:41 Urine WBC 7 /hpf (0-5) H 01/15/21 11:41 Ur Squamous Epith Cells 2 /hpf (0-4) 01/15/21 11:41 Urine Mucus Occasional /hpf (None) H 01/15/21 11:41 Assessment and Plan Plan: 1. Transient global amnesia Acute short-term memory loss, need to eval for CVA, patient has multiple risks include control, family history, of CAD. Patient was seen by neurology, for which global amnesia with anterograde and retrograde amnesia detected, no history of seizures, or migraines. No local trauma no previous episode of the same. Patient is to have an EEG of the brain to be done, as well as lipid evaluation and management aspirin 325 mg daily, car otid Dopplers, echocardiogram with bubble study, 2. Abnormal uterine bleeding for which she was recommended to have hysterectomy however patient was worried about a friend who because of the hysterectomy, patient currently is on control to manage the bleeding, using OCP, and ibuprofen and transxenamic acid, being given to her by her [employer]. Decision would be made regarding control will be made prior to discharge depending on MRI report . Again with aspirin on board, if this is truly a stroke, patient needs why about uncontrolled bleeding while on antiplatelet agents she hasn't reconsider options given to her by her [employer] for hysterectomy. History of ablation uterine, in 2019 3. History of thyroid nodule, and not requiring any surgical management at this time, not on any medications for it 4. Gross hematuria secondary to menstrual cycle 5. Family history is early CAD GI prophylaxis and DVT prophylaxis with early ambulation
--- NOTE | 2021-01-15 20:14 | MR ---
EXAMINATION TYPE: MR brain wo con DATE OF EXAM: 01/15/2021 COMPARISON: None HISTORY: Memory loss. Ventricles have normal size. There is no mass effect nor midline shift. There is no sign of intracran ial hemorrhage. Diffusion images show no evidence of an acute infarct. There is minimal mucosal thickening in the ethmoid air cells. There are two isolated foci of increase d signal at the black-white matter junction both cerebral hemispheres. These measure up to 4 mm. These are seen at the left centrum semiovale and right posterior frontal lobe convexity. The corpus callosum appears intact. Brainstem is intact. There is no evidence of orbital mass. Sella turcica appears normal. IMPRESSION: 2 small isolated foci of increased signal as above in the left parietal and right frontal lobes. No e vidence of cortical infarct. I do not see evidence for demyelinating disease.
--- NOTE | 2021-01-15 23:16 | US ---
EXAMINATION TYPE: US carotid duplex BILAT DATE OF EXAM: 01/15/2021 COMPARISON: CT brain. CLINICAL HISTORY: Transient global amnesia, rule out seizure or TIA. Rule out seizure or TIA; transie nt global amnesia per order. EXAM MEASUREMENTS: RIGHT: Peak Systolic Velocity (PSV) cm/sec ----- Right CCA: 62.2 ----- Right ICA: 101.3 ----- Right ECA: 71.8 ICA/CCA ratio: 1.6 RIGHT: End Diastole cm/sec ----- Right CCA: 29.2 ----- Right ICA: 43.1 ----- Right ECA: 22.3 LEFT: Peak Systolic Velocity (PSV) cm/sec ----- Left CCA: 58.6 ----- Left ICA: 118.2 ----- Left ECA: 77.3 ICA/CCA ratio: 2.0 LEFT: End Diastole cm/sec ----- Left CCA: 23.4 ----- Left ICA: 50.9 ----- Left ECA: 23.4 VERTEBRALS (direction of flow): Right Vertebral: Antegrade Left Vertebral: Antegrade Rhythm: Normal No elevated velocities at this time. Left ICA/CCA ratio is 2.0. *Incidental finding: Thyroid appears very heterogeneous bilaterally. IMPRESSION: There is antegrade flow in the vertebral arteries. There is no significant plaque formation. The imag es and measurements suggest close to 0% stenosis in both internal carotid arteries. NASCET criteria was used in interpretation of this exam? Criteria for Assigning % of Stenosis / Diameter reduction (Estimation based on the indirect measurements of the internal carotid artery velocities (ICA PSV). 1. Normal (no stenosis)=ICA PSV < 125 cm/s: ratio < 2.0: ICA EDV<40 cm/s. 2. Less than 50% stenosis=ICA PSV < 125 cm/s: ratio < 2.0: ICA EDV<40 cm/s. 3. 50 to 69% stenosis=ICA PSV of 125 to 230 cm/s: ration 2.0 ? 4.0: ICA EDV 40-100 cm/s. 4. Greater than 70% stenosis to near occlusion= ICA PSV > 230 cm/s: ratio > 4.0: ICA EDV > 100 cm/s. 5. Near occlusion= ICA PSV velocities may be low or undetectable: variable ratio and ICA EDV. 6. Total occlusion=unable to detect flow.
[2021-01-16] MEDS: ACETAMINOPHEN TAB 325 MG TAB PO PRN ×2 (02:34→09:34)
[2021-01-16] MEDS ORDERED: LEVOTHYROXINE 125 MCG TAB PO SCH (06:30)
[2021-01-16 07:20] VITALS: RESP 16
[2021-01-16] MEDS ORDERED: ASPIRIN 325 MG TAB PO SCH (09:00)
[2021-01-16 11:49] LABS: Chol/HDL Ratio 2.92; LDL Cholesterol,Calculated 118.4 mg/dL (0.0-131.0); VLDL Calculation 23.6 mg/dL (5.00-40.00)
--- NOTE | 2021-01-16 12:51 | EEG ---
ELECTROENCEPHALOGRAM REPORT DATE OF SERVICE: 01/16/2021 This is a 50-year-old woman with an episode of confusion. The video EEG is obtained to evaluate for seizure epileptiform activity. RELEVANT MEDICATION: The patient is not on any antiepileptic drugs. EEG TYPE: A routine 21 channel EEG is performed with video using the 10/20 electrode placement system. DESCRIPTION: Wakefulness and brief drowsiness are obtained. During wakefulness, there is a posterior dominant rhythm of low to moderate voltage, reactive, well modulated of 10-11 hertz activity. During drowsiness, there is slowing attenuation of the background activity. There was no physiological stage 2 sleep architecture. There is no focal slowing. Interictal and ictal is none. Photic stimulation did evoke a posterior driving response at multiple flash frequencies. There is no abnormality during the photic stimulation. Hyperventilation is not performed. CLINICAL INTERPRETATION: This is a normal routine EEG. There are no focal slowing, epileptiform discharges or seizure on the EEG. Clinical correlation is recommended. MIK / DALE: [id number] / MICHAEL
--- NOTE | 2021-01-16 12:52 | P.PN ---
Subjective Progress Note Date: 01/16/21 I'm seeing the patient for the first time. Please refer to Dr. Bryan's note for further details. Per the patient's she's feeling drastically better. She denies of any further episodes of memory loss or confusion. Objective - Vital Signs Vital signs: Vital Signs Temp 98.4 F 01/16/21 07:00 Pulse 64 01/16/21 08:00 Resp 16 01/16/21 08:00 BP 144/79 01/16/21 07:00 Pulse Ox 99 01/16/21 07:00 Intake & Output 01/15/21 01/16/21 01/16/21 18:59 06:59 18:59 Intake Total 340 Balance 340 Weight 58.967 kg Intake: Oral 340 Other: Voiding Method Toilet Toilet Toilet # Voids 1 - Exam GENERAL: The patient is lying in bed and is not in acute distress. NEUROLOGICAL: Higher mental function: The patient is awake, alert, oriented to self, place and time. Patient is following commands. No aphasia and no neglect. Cranial nerves: The pupils are round, equal and reactive to light and accommodation. Visual ferreira are full to confrontation throughout. Extraocular movement is intact no nystagmus is noted. Facial sensation is normal to touch throughout. The facial strength is normal throughout. Hearing is normal bilaterally to hand rub. Tongue is midline and moved [id number] without any difficulty. No dysarthria is noted. Shoulder shrug is normal bilaterally. Motor: The strength is 5 over 5 throughout. Normal tone and bulk. Cerebellum: Normal finger to nose heel to randle bilaterally. Sensation: Sensation is normal to touch throughout. Plantars are downgoing bilaterally. - Labs CBC & Chem 7: 01/15/21 11:31 01/15/21 11:31 Labs: Abnormal Lab Results - Last 24 Hours (Table) 01/16/21 Range/Units 06:35 Cholesterol 216 H (0-200) mg/dL HDL Cholesterol 74.0 H (40.0-60.0) mg/dL Assessment and Plan Assessment: * Probable transient global amnesia. Patient has retrograde and anterograde amnesia. No history of trauma, migraines or epilepsy. Patient has no other focal symptoms whatsoever. * High blood pressure readings. Patient has never been diagnosed with hypertension although has had some times elevated blood pressure readings in the past. Suspect patient has hypertension. * Hypercoagulable state due to use of control pills. Plan: Routine EEG (preliminary): Normal. There are no focal slowing, epileptiform discharges or seizure on the EEG. Carotid duplex was reported as there is antegrade flow in the vertebral arteries at. There is no significant plaque formation. The images and measurements suggest close to 0% stenosis in both internal carotid arteries. MRI the brain is reported as 2 small isolated foci of increased signal in the left parietal and right frontal lobes. No evidence of cortical infarct. I do not see evidence for demyelinating disease. Lipid panel is a triglyceride of 118, cholesterol 216, LDLs 118 and HDL is 74. Currently the patient is on aspirin 325mg daily and would recommend Lipitor 20 mg daily at bedtime daily. From a neurological perspective the patient was notified to continue these 2 medication aspirin and Lipitor and follow up with a neurologist as an outpatient and we'll defer after that medication the modification to her neurologist. Recommend if possible progesterone as a control if possible over estrogen (to avoid risk of stroke). As stated above she is to follow up with a neurologist hopefully within 1-2 weeks as an outpatient. There is no further neurological workup needed and she is clear from neurological standpoint. The plan is discussed with the patient and primary team. Adarsh Mario MD Neuro-Hospitalist Time with Patient: Less than 30
[2021-01-16 13:04] VITALS: BP 142/87; PULSE 62; TEMP 98.5
--- NOTE | 2021-01-16 17:05 | P.DS ---
Providers Date of admission: 01/15/21 13:27 Attending physician: Michelle Roberto Consults: 01/15/21 13:22 Consult Physician Routine Consulting Provider: Latonia Bryan Consult Reason/Comments: altered mental status Do you want consulting provider notified?: Yes Primary care physician: [facility] Course: Chief Complaint: Memory loss This is a 50-year-old pleasant female, with known history of hypothyroidism, comes into the hospital with acute memory loss. She was fine when she woke up this morning and they were making plans for a biking trip that day, a approxim ately 9:30 a.m., and there were planning to go out for bike ride. The did not come outside, and the has to come back in to look for her, where she he found her to be very confused, cannot recollect anything, Asking questions over and over again, patient denies any motor deficits, or slurred speech, or facial droop, there is right headache temporal region, mild, without any loss of consciousness, no diplopia. Patient does not have any previous history of CVA in the past, no CHF, no history of hypertension, no tobacco use, no diabetes mellitus patient denies any new acute exposure, or extensive sun exposure including gardening. No recent drug changes, or prescription medicines. They don't have a wedding that they have gotten to Friday. For which she had a couple of drinks at that time. In the emergency room, which she was noted to be hypertensive with systolic of 157 with diastolic 105, computed tomography scan done, showed age related atrophy, and chronic small vessel ischemic change, without any acute intracranial process. EKG shows normal sinus rhythm, UA shows trace ketones, large amount of blood, small leukocyte esterase, however wbc's only 7, and RBCs over 182. There is 1+ proteinuria, glucose 109, creatinine of 0.71, sodium 137. Patient is on Sprintec, which is an OCP, and ibuprofen, when seen in ER, NIH score of 1, with the memory loss. No motor deficit, no obesity changes, patient's admitted with consult to neurology, start aspirin, and MRI of the brain with and without contrast 01/16patient was seen by neurology cleared, for discharge, discuss medical management, he thinks she did not have a TIA, MRI of the brain showed old lesion left parietal, and right frontal region small hyperintensity, discussed change in OCP, from combined estrogen progesterone pill to progesterone only pill, aspirin 81 mg daily, statin low-dose Lipitor 20, until seen by Dr. Kd Ramsey, neurologist outpatient follow-up Review of Systems Constitutional: Reports as per HPI, Denies anorexia, Denies chills, Denies chronic headaches, Denies chronic pain, Denies daytime sleepiness, Denies fatigue, Denies fever, Denies lethargy, Denies malaise, Denies night sweats, Denies poor appetite, Denies sweats, Denies weakness, Denies weight gain, Denies weight loss Ears, nose, mouth and throat: Reports as per HPI, Denies ant. neck pain, Denies bleeding gums, Denies dental pain, Denies dysphagia, Denies epistaxis, Denies headache, Denies hoarseness, Denies mouth pain, Denies nasal congestion, Denies nasal discharge, Denies neck fullness/pressure, Denies neck lump, Denies nose pain, Denies odynophagia, Denies post-nasal drip, Denies sinus pain, Denies sinus pressure, Denies swelling in mouth, Denies swelling in throat, Denies sore throat, Denies vertigo, Denies voice changes Breasts: Reports as per HPI Cardiovascular: Reports as per HPI, Denies chest pain, Denies claudication, Denies decreased exercise tolerance, Denies dyspnea on exertion, Denies edema, Denies high blood pressure, Denies irregular heart beat, Denies leg edema, Denies lightheadedness, Denies orthopnea, Denies palpitations, Denies paroxysmal nocturnal dyspnea, Denies phlebitis, Denies rapid heart beat, Denies shortness of breath, Denies syncope Respiratory: Reports as per HPI, Denies congestion, Denies cough, Denies cough with sputum, Denies dyspnea, Denies excessive sputum, Denies hemoptysis, Denies home oxygen, Denies pain, Denies pain on inspiration, Denies pleurisy, Denies respiratory infections, Denies sleep apnea, Denies snoring, Denies wheezing Gastrointestinal: Reports as per HPI Genitourinary: Reports as per HPI Menstruation: Reports as per HPI Musculoskeletal: Reports as per HPI, Denies arm numbness/tingling, Denies atrophy, Denies fractures, Denies frequent falls, Denies gait dysfunction, Denies hot joints, Denies leg numbness/tingling, Denies limitation of motion, Denies loss of height, Denies low back pain, Denies morning stiffness, Denies muscle cramps, Denies muscle weakness, Denies myalgias, Denies neck pain, Denies neck stiffness, Denies prior amputations, Denies redness of joints, Denies shooting arm pain, Denies shooting leg pain Integumentary: Reports as per HPI, Denies acne, Denies boils, Denies brittle nails, Denies change in hair/nails, Denies color changes, Denies darkening of skin, Denies depigmentation, Denies dryness, Denies foot/leg ulcers, Denies growths, Denies hirsutism, Denies lesions, Denies onychomycosis, Denies pruritus, Denies rash, Denies sores, Denies striae, Denies unusual bruising, Denies wounds Neurological: Reports as per HPI, Reports memory loss Psychiatric: Reports as per HPI, Denies anhedonia, Denies anxiety, Denies anxiety attacks, Denies change in appetite, Denies change in libido, Denies change in sleep habits, Denies confusion, Denies depression, Denies difficulty concentrating, Denies disorientation, Denies hallucinations, Denies hopelessness, Denies hypersomnia, Denies insomnia, Denies irritability, Denies memory loss, Denies mood swings, Denies paranoia, Denies sadness/tearfulness, Denies sleep disturbances, Denies suicidal ideation Endocrine: Reports as per HPI, Denies cold intolerance, Denies deepening of the voice, Denies excessive sweating, Denies excessive thirst, Denies fatigue, Denies flushing, Denies heat intolerance, Denies high blood sugars, Denies increase in ring/shoe/hat size, Denies low blood sugars, Denies nocturia, Denies palpitations, Denies polydipsia, Denies polyphagia, Denies polyuria, Denies proptosis, Denies recent glucocorticoid use, Denies thyroid mass, Denies weight change Hematologic/Lymphatic: Reports as per HPI Allergic/Immunologic: Reports as per HPI, Denies allergic rhinitis, Denies anaphylaxis, Denies angioedema, Denies gluten intolerance, Denies persistent infections, Denies seasonal allergies, Denies urticaria, Denies wheezing Final diagnosis Plan: 1. Transient global amnesia Acute short-term memory loss, need to eval for CVA, patient has multiple risks include control, family history, of CAD. Patient was seen by neurology, for which global amnesia with anterograde and retrograde amnesia detected, no history of seizures, or migraines. No local trauma no previous episode of the same. Patient is to have an EEG of the brain to be done, as well as lipid evaluation and management aspirin 325 mg daily, carotid Dopplers, echocardiogram with bubble study, patient was cleared by neurology, with outpatient follow-up with Dr. Ramsey, neurology recommended to discontinue estrogen, and just maintain progesterone only pill, we'll going to switch her to Micronor, aspirin low-dose 81 mg, Lipitor 20 mg, and follow-up as an outpatient with [employer] as well. 2. Abnormal uterine bleeding for which she was recommended to have hysterectomy however patient was worried about a friend who because of the hysterectomy, patient currently is on control to manage the bleeding, using OCP, and ibuprofen and transxenamic acid, being given to her by her [employer]. Decision would be made regarding control will be made prior to discharge depending on MRI report . Again with aspirin on board, if this is truly a stroke, patient needs why about uncontrolled bleeding while on antiplatelet agents she hasn't reconsider options given to her by her [employer] for hysterectomy. History of ablation uterine, in 2019 3. History of thyroid nodule, and not requiring any surgical management at this time, not on any medications for it 4. Gross hematuria secondary to menstrual cycle 5. Family history is early CAD GI prophylaxis and DVT prophylaxis with early ambulation Patient Condition at Discharge: Fair Plan - Discharge Summary Discharge Rx Participant: No New Discharge Prescriptions: New Atorvastatin [Lipitor] 20 mg PO HS #30 tablet Norethindrone [Ortho Micronor] 0.35 mg PO DAILY #30 tablet Continue Ibuprofen [Motrin] 600 mg PO Q6HR PRN PRN Reason: Pain Tranexamic Acid [Lysteda] See Taper PO DIRECTED Levothyroxine Sodium [Synthroid] 125 mcg PO DAILY Discontinued Norgestimate-Ethinyl Estradiol [Sprintec 28 Day Tablet] 1 tab PO DAILY Discharge Medication List Ibuprofen [Motrin] 600 mg PO Q6HR PRN 01/15/21 [History] Levothyroxine Sodium [Synthroid] 125 mcg PO DAILY 01/15/21 [History] Tranexamic Acid [Lysteda] See Taper PO DIRECTED 01/15/21 [History] Atorvastatin [Lipitor] 20 mg PO HS #30 tablet 01/16/21 [Rx] Norethindrone [Ortho Micronor] 0.35 mg PO DAILY #30 tablet 01/16/21 [Rx] Follow up Appointment(s)/Referral(s): Kd Ramsey DO [REFERRING] - 03/19/21 8:30 am Hakeem Gamino DO [Primary Care Provider] - 1-2 days Patient Instructions/Handouts: Altered Mental Status (GEN), Transient Global Amnesia (GEN) Discharge Disposition: HOME SELF-CARE
--- NOTE | 2021-01-17 10:50 | ECHOF ---
Referral Reason:Transient global amnesia, rule out CVA MEASUREMENTS -------- HEIGHT: 165.1 cm WEIGHT: 59.0 kg BP: 139/72 RVIDd: 2.8 cm (< 3.3) IVSd: 1.1 cm (0.6 - 1.1) LVIDd: 4.1 cm (3.9 - 5.3) LVPWd: 1.0 cm (0.6 - 1.1) IVSs: 1.6 cm LVIDs: 1.8 cm LVPWs: 1.8 cm LAESV Index (A-L): 23.43 ml/m Ao Diam: 2.7 cm (2.0 - 3.7) AV Cusp: 1.6 cm (1.5 - 2.6) MV EXCURSION: 16.721 mm (> 18.000) MV EF SLOPE: 57 mm/s (70 - 150) EPSS: 0.2 cm MV E Donovan: 0.68 m/s MV DecT: 223 ms MV A Donovan: 0.91 m/s MV E/A Ratio: 0.75 RAP: 5.00 mmHg RVSP: 18.08 mmHg FINDINGS -------- Sinus rhythm. This was a technically good study. The left ventricular size is normal. Left ventricular wall thickness is normal. Overall left vent ricular systolic function is normal with, an EF between 55 - 60 %. The diastolic filling pattern is normal for the age of the patient 12.22. The right ventricle is normal in size. Normal LA size by volume 22+/-6 ml/m2. The right atrial size is normal. Contrast study was performed with 2 iv injections of 8 ccs of agitated normal saline, at rest, and wi th cough. Negative agitated saline study for a possible PFO Interatrial and interventricular septum intact. The aortic valve is trileaflet and appears structurally normal. There is no evidence of aortic regu rgitation. There is no evidence of aortic stenosis. No mitral regurgitation. Trace tricuspid regurgitation present. There is no evidence of pulmonary hypertension. The right ventricular systolic pressure, as measured by Doppler, is 18.08mmHg. There is no pulmonic regurgitation present. The aortic root size is normal. Normal inferior vena cava with normal inspiratory collapse consistent with estimated right atrial pre ssure of 5 mmHg. There is no pericardial effusion. CONCLUSIONS -------- 1. The left ventricular size is normal. 2. Left ventricular wall thickness is normal. 3. Overall left ventricular systolic function is normal with, an EF between 55 - 60 %. 4. The diastolic filling pattern is normal for the age of the patient 12.22 5. Contrast study was performed with 2 iv injections of 8 ccs of agitated normal saline, at rest, and with cough. 6. Negative agitated saline study for a possible PFO 7. Trace tricuspid regurgitation present. WINCH OPERATOR: Cari Castellano RDCS
== END 2021-01-16 14:35 | disposition home or self-care (01) ==
LOC: EC 10:38 → 6NMEDSUR 13:27
PROVIDERS: ADMIT Family Medicine; ATTEND Family Medicine
DX: G45.4 Transient global amnesia (principal); R41.2 Retrograde amnesia; N93.9 Abnormal uterine and vaginal bleeding, unspecified; E04.1 Nontoxic single thyroid nodule; R31.0 Gross hematuria; I10 Essential (primary) hypertension; E03.9 Hypothyroidism, unspecified; D68.69 Other thrombophilia; R51.9 Headache, unspecified; R80.9 Proteinuria, unspecified; Z79.82 Long term (current) use of aspirin; Z79.890 Hormone replacement therapy; Z79.899 Other long term (current) drug therapy; Z79.3 Long term (current) use of hormonal contraceptives; Z82.49 Family history of ischemic heart disease and other diseases of the circulatory system; Z80.9 Family history of malignant neoplasm, unspecified
CPT/HCPCS: 96374; 99285; 36415; 95816; 93005; 93306; 80061; 80053; 85025; 85610; 85730; 81001; 93880; 70450; 70551; G0378 ×2; J2405

== ENCOUNTER → 2021-05-04 | Outpatient (CLI) | payer BC ==
--- NOTE | 2021-05-07 11:34 | MM ---
Reason for exam: screening (asymptomatic). Last mammogram was performed 1 year and 2 months ago. History: Taking hormonal contraceptives for 20 years beginning at age 17. Physical Findings: A clinical breast exam by your physician is recommended on an annual basis and results should be correlated with mammographic findings. MG 3D Screening Mammo W/Cad Bilateral CC and MLO view(s) were taken. Prior study comparison: March 16, 2020, bilateral MG 3d screening mammo w/cad. January 06, 2019, bilateral MG screening mammo w CAD. The breast tissue is heterogeneously dense. This may lower the sensitivity of mammography. Stable calcifications. There is no discrete abnormality. No significant changes when compared with prior studies. ASSESSMENT: Benign, BI-RAD 2 RECOMMENDATION: Routine screening mammogram of both breasts in 1 year.
== END | disposition home or self-care (01) ==
LOC: RADMAMWWP 09:44
PROVIDERS: ATTEND Obstetrics & Gynecology
DX: Z12.31 Encounter for screening mammogram for malignant neoplasm of breast (principal)
CPT/HCPCS: 77063; 77067

== ENCOUNTER → 2022-02-12 | Outpatient (CLI) | payer BC ==
--- NOTE | 2022-03-19 06:20 | EM ---
EVENT MONITOR THIRTY-DAY EVENT MONITOR REPORT: Several rhythm strips were available, almost all of these are sinus mechanisms. Some of them were patient activated, most of them were auto capture. There is no evidence of any significant arrhythmia. Sinus rhythm and sinus tachycardia were noted. FINAL IMPRESSION: Unremarkable 30-day event monitor with predominant sinus rhythm and sinus tachycardia. No significant arrhythmia was noted. MIK / GEORGEN: [id number] /
== END | disposition home or self-care (01) ==
LOC: RADECHMAIN 12:23
PROVIDERS: ATTEND Family Medicine
DX: G45.4 Transient global amnesia (principal); R00.0 Tachycardia, unspecified; Z82.49 Family history of ischemic heart disease and other diseases of the circulatory system
CPT/HCPCS: 93270

== ENCOUNTER → 2022-05-14 | Outpatient (CLI) | payer BC ==
--- NOTE | 2022-05-17 10:46 | MM ---
Reason for Exam: Screening (asymptomatic). Last screening mammogram was performed 12 month(s) ago. Patient History: Menarche at age 12. First Full-Term at age 17. Perimenopausal. Currently using Hormonal Contraceptives, beginning at age 17 for 20 years. Last menstrual period: 02/21/2022 Risk Values: Elif 5 year model risk: 0.7%. NCI Lifetime model risk: 6.4%. Prior Study Comparison: 01/06/2019 Bilateral Screening Mammogram, [facility]. 03/16/2020 Bilateral Screening Mammogram, [facility]. 05/04/2021 Bilateral Screening Mammogram, [facility]. Tissue Density: The breast tissue is heterogeneously dense. This may lower the sensitivity of mammography. Findings: Analyzed By CAD. There is no suspicious new group of microcalcifications or new distortion in either breast. Overall Assessment: Negative, BI-RAD 1 Management: Screening Mammogram of both breasts in 1 year. Some advised ultrasound surveillance in patients with background dense tissue. A clinical breast exam by your physician is recommended on an annual basis and results should be correlated with mammographic findings. Electronically signed and approved by: Richard Mejias M.D.
== END | disposition home or self-care (01) ==
LOC: RADMAMWWP 15:04
PROVIDERS: ATTEND Obstetrics & Gynecology
DX: Z12.31 Encounter for screening mammogram for malignant neoplasm of breast (principal)
CPT/HCPCS: 77063; 77067

== ENCOUNTER → 2023-07-04 | Outpatient (CLI) | payer BC ==
--- NOTE | 2023-07-07 07:41 | MM ---
Reason for Exam: Screening (asymptomatic). Last mammogram was performed 1 year(s) and 2 month(s) ago. Patient History: Menarche at age 12. First Full-Term at age 17. Perimenopausal. Currently using Hormonal Contraceptives, beginning at age 17 for 20 years. Risk Values: Elif 5 year model risk: 0.8%. NCI Lifetime model risk: 6.2%. Prior Study Comparison: 03/16/2020 Bilateral Screening Mammogram, [facility]. 05/04/2021 Bilateral Screening Mammogram, [facility]. 05/14/2022 Bilateral MG 3D screening mammo w/cad, [facility]. Tissue Density: There are scattered fibroglandular densities. Findings: Analyzed By CAD. There is no suspicious group of microcalcifications or new suspicious mass. Overall Assessment: Negative, BI-RAD 1 Management: Screening Mammogram of both breasts in [address] [facility] will attempt to contact patient to return for supplemental views and ultrasound if indicated. Patient should continue monthly self-breast exams. A clinical breast exam by your physician is recommended on an annual basis. This exam should not preclude additional follow-up of suspicious palpable abnormalities. Note on Elif scores and lifetime risk: 1. A Elif score greater than 3% is considered moderate risk. If this is the case, consider specialist referral to assess eligibility for a risk reducing agent. 2. If overall lifetime risk for the development of breast cancer is 20% or higher, the patient may qualify for future screening with alternating mammogram and breast MRI. Electronically signed and approved by: Lencho Michel DO
== END | disposition home or self-care (01) ==
LOC: RADMAMWWP 14:33
PROVIDERS: ATTEND Obstetrics & Gynecology
DX: Z12.31 Encounter for screening mammogram for malignant neoplasm of breast (principal)
CPT/HCPCS: 77063; 77067